=== PATIENT | male | born 1985 | race African-American/Black ===

== ENCOUNTER 2023-10-11 17:00 | Emergency (ER) | payer OTHER ==
[2023-10-11] MEDS ORDERED: LORazepam 2 MG/ML VIAL ONE (17:28)
[2023-10-11] MEDS ORDERED: NA CHLORIDE 0.9% 1,000 ML ONE ×3 (17:28→20:07)
[2023-10-11 17:50] LABS: Absolute Lymphocytes (CBC) 0.7 K/uL (0.7-4.9); Absolute Monocytes 0.5 K/uL (0.1-1.3); Absolute Neutrophil 5.2 K/uL (1.8-8.0); Basophils % 0.3 % (0-1.3); Eosinophils % 0.1 % (0-4.4); Hematocrit 41.1 % (39.6-49.0); Lymphocytes % 10.8 % (15.3-44.8); MCH 32.5 pg (27.0-35.0); MCHC 34.1 g/dL (32.0-36.0); MCV 95.3 fL (80-100); MPV 7.3 fL (7.6-11.3); Monocytes % 7.4 % (3.3-12.3); Neutrophils % 81.4 % (41.7-73.7); Platelets 212 thou/uL (152-406); RBC Red Blood Cell Count 4.32 M/uL (4.33-5.43)
[2023-10-11 17:56] LABS: PT Prothrombin Time 11.6 SECONDS (9.4-12.5); PTT, Activated Partial Thromb 18.4 SECONDS (24.3-36.9); Protime INR 1.04
[2023-10-11 18:08] LABS: ALT/SGPT 28 U/L (16-61); AST/SGOT 26 U/L (15-37); Albumin 3.8 g/dL (3.4-5.0); Albumin/Globulin Ratio 1.1 (1.1-1.8); Alkaline Phosphatase 62 U/L (45-117); BUN Blood Urea Nitrogen 25 mg/dL (7-18); Bicarbonate 27 mEq/L (21-32); Bilirubin Total 0.4 mg/dL (0.2-1.0); Globulin 3.6 g/dL (2.3-3.5); Glomerular Filtration Rate 78 ml/min (=/>90); Glucose Level 88 mg/dL (74-106); Protein, Total 7.4 g/dL (6.4-8.2); Sodium Level 141 mEq/L (136-145)
[2023-10-11 18:09] LABS: Bilirubin Direct < 0.2 mg/dL (0-0.2); Bilirubin Indirect, Calculated 0.2 mg/dL (0.2-0.8)
--- NOTE | 2023-10-11 18:49 | RAD REPORT ---
EXAM DESCRIPTION: CT - Head Brain Wo Cont - 10/11/2023 6:12 pm CLINICAL HISTORY: ams Headache, drowsiness COMPARISON: <Comparisons> TECHNIQUE: All CT scans are performed using dose optimization technique as appropriate and may inclu de automated exposure control or mA/KV adjustment according to patient size. FINDINGS: No intracranial hemorrhage, hydrocephalus or extra-axial fluid collection.No areas of brai n edema or evidence of midline shift. The paranasal sinuses and mastoids are clear. The calvarium is intact. IMPRESSION: No acute intracranial abnormality.
[2023-10-11 22:27] LABS: Anion Gap 9.2 mEq/L (5.0-15.0); Potassium 4.2 mEq/L (3.5-5.1)
--- NOTE | 2023-10-11 22:54 | ER ---
Nurse's Notes [facility] Name: Patrick Frederick Age: 37 yrs Sex: Male : 1985 Arrival Date: 10/11/2023 Time: 17:00 Bed 19 Private MD: Diagnosis: Adverse effect of unspecified psychotropic drug;Rhabdomyolysis Presentation: 10/10 17:02 Chief complaint: EMS states: DRUG ABUSE IN TDC, EXCITED DELIRIUM. Coronavirus screen: bp At this time, the client does not indicate any symptoms associated with coronavirus-19. Ebola Screen: No symptoms or risks identified at this time. Initial Sepsis Screen: Does the patient meet any 2 criteria? Altered Mental Status. No. Patient's initial sepsis screen is negative. Does the patient have a suspected source of infection? No. Patient's initial sepsis screen is negative. Risk Assessment: Do you want to hurt yourself or someone else? Patient reports no desire to harm self or others. Onset of symptoms is unknown. Care prior to arrival: Medication(s) given: 250 MG KETAMINE IM IV initiated. 18 GA, in the right forearm. 17:02 Method Of Arrival: EMS: [facility] bp 17:02 Acuity: SOM 2 bp Triage Assessment: 17:04 General: Appears ALTERED/AGGRESSIVE. Behavior is agitated, combative. Pain: Unable to bp use pain scale. Does not appear to understand pain scale. EENT: No deficits noted. Neuro: Level of Consciousness is confused. Historical: - Allergies: 17:04 No Known Allergies; bp - Home Meds: 17:04 amlodipine 10 mg tablet [Active]; sertraline 50 mg oral tablet [Active]; bp - PMHx: 17:04 Hypertensive disorder; Depressive disorder; bp - Immunization history:: Adult Immunizations unknown. - Infectious Disease History:: Denies. - Social history:: Smoking status: unknown. - Family history:: not pertinent. Screenin:07 [facility] ED Fall Risk Assessment (Adult) History of falling in the last 3 months, bp including since admission No falls in past 3 months (0 pts) Confusion or Disorientation Yes (5 pts) Intoxicated or Sedated Yes (3 pts) Impaired Gait Yes (1 pt) Mobility Assist Device Used No (0 pt) Altered Elimination No (0 pt) Score/Fall Risk Level 3 or more points = High Risk Maintained a safe environment. Abuse screen: Denies threats or abuse. Denies injuries from another. Nutritional screening: No deficits noted. Tuberculosis screening: No symptoms or risk factors identified. Assessment: 17:07 General: PT IN CUSTODY TDC. bp 19:30 General: Appears in no apparent distress. comfortable, Behavior is calm, uncooperative, mt4 Reports. Pain: Denies pain. Neuro: Level of Consciousness is awake, alert, obeys commands, Oriented to person, place, time, situation, Appropriate for age Ball Points Inspector are equal bilaterally Moves all extremities. Gait is patient in cuff . Speech is normal, Facial symmetry appears normal. Cardiovascular: Capillary refill < 3 seconds Patient's skin is warm and dry. Respiratory: Airway is patent. GI: Abdomen is flat, non-distended, Abd is soft and non tender. : Denies burning with urination. EENT:. 21:00 Reassessment: Patient observed to baseline, alert and orientated x4, provider states no mt4 need to collect urine anymore, as patient was given many opportunities to provide urine but continues to refuse. . 22:00 Reassessment: Patient and/or family updated on plan of care and expected duration. Pain mt4 level reassessed. General: Appears in no apparent distress. Behavior is calm, cooperative, Smells of. 23:45 Reassessment: Patient is alert, oriented x 3, equal unlabored respirations, skin mt4 warm/dry/pink. General: Appears in no apparent distress. comfortable, Behavior is calm, cooperative. Pain: Denies pain. Neuro: Level of Consciousness is awake, alert, obeys commands, Oriented to person, place, time, situation, Appropriate for age Gait is steady, Speech is normal, Facial symmetry appears normal. Cardiovascular: Capillary refill < 3 seconds. Respiratory: Musculoskeletal: Capillary refill < 3 seconds, Range of motion: intact in all extremities. Overdose: 18:21 [place] Suicide Severity Screening: "In the past month, have you wished you were bp or wished you could go to sleep and not wake up?" UNABLE TO ASSESS "In the past month, have you actually had any thoughts of killing yourself?" UNABLE TO ASSESS "In your lifetime, have you ever done anything, started to do anything, or prepared to do anything to end your life?" UNABLE TO ASSESS. 23:49 [place] Suicide Severity Screening: "In the past month, have you wished you were mt4 or wished you could go to sleep and not wake up?" Patient responds "no." Patient responds "yes." Based off client's responses, additional C-SSRS screening questions required. "In the past month, have you actually had any thoughts of killing yourself?" Patient responds "no." "In your lifetime, have you ever done anything, started to do anything, or prepared to do anything to end your life?" Patient responds "no.". 23:50 [place] Suicide Severity Screening: "In the past month, have you actually had any mt4 thoughts of killing yourself?" Patient responds "yes." Based off client's responses, additional C-SSRS screening questions required. Patient took unknown, patient refuses to tell. Vital Signs: 17:02 BP 130 / 80; Pulse 110; Resp 20; Temp 98; Pulse Ox 95% ; bp 19:42 BP 132 / 77; Pulse 87; Resp 16; Temp 99.5(O); Pulse Ox 97% on R/A; Pain 0/10; mt4 21:00 BP 132 / 88; Pulse 86; Resp 16; Pulse Ox 98% on R/A; Pain 0/10; mt4 23:42 BP 139 / 88; Pulse 78; Resp 18; Temp 99(O); Pulse Ox 97% on R/A; Pain 0/10; mt4 19:42 Pain Scale: Adult mt4 21:00 Pain Scale: Adult mt4 23:42 Pain Scale: Adult mt4 [place] Score: 19:30 Eye Response: spontaneous(4). Motor Response: obeys commands(6). Verbal Response: mt4 oriented(5). Total: 15. 22:00 Eye Response: spontaneous(4). Motor Response: obeys commands(6). Verbal Response: mt4 oriented(5). Total: 15. 23:45 Eye Response: spontaneous(4). Motor Response: obeys commands(6). Verbal Response: mt4 oriented(5). Total: 15. ED Course: 17:00 Patient arrived in ED. bp 17:01 Kali Loo MD is Attending Physician. rt 17:02 Ernesto Ernst, AYALA is Primary Nurse. bp 17:04 Triage completed. bp 17:04 Arm band placed on. bp 17:07 Patient has correct armband on for positive identification. bp 17:07 Maintain EMS IV. Dressing intact. Good blood return noted. Site clean \\T\\ dry. Gauge \\T\\ bp site: 18 GA RFA. Flushed with 10 mL NS. 17:42 Initial lab(s) drawn, by me, sent to lab. bp 17:58 Attending Physician role handed off by Kali Loo MD ec2 17:58 Akin Pollock MD is Attending Physician. ec2 18:13 CT Head Brain wo Cont In Process Unspecified. EDMS 19:30 No apparent distress. Resting quietly. mt4 19:30 Bed in low position. Call light in reach. Side rails up X 1. has police mt4 officers/security watching patient. Client placed on continuous cardiac and pulse oximetry monitoring. NIBP monitoring applied. Pulse ox on. Sitter at bedside. Lights dimmed. Patient is placed in psych hold. 19:30 No provider procedures requiring assistance completed. IV is intact, with fluids mt4 infusing freely. Patient maintains SpO2 saturation greater than 95% on room air. Patient maintains SpO2 saturation greater than 95% on room air. 19:59 Sarah Reyna FNP-C is PHCP. kb 22:00 No apparent distress. Resting quietly. Awaiting lab results. mt4 23:45 No apparent distress. mt4 23:45 Fall risk band placed. Placed in gown. Bed in low position. Side rails up X 1. Security mt4 at bedside. Lights dimmed. Patient is placed in psych hold. 23:45 IV discontinued, intact, bleeding controlled, No redness/swelling at site. Pressure mt4 dressing applied. Patient maintains SpO2 saturation greater than 95% on room air. 23:50 Provided Education on: quit taking substances . mt4 Administered Medications: 17:42 Drug: NS 0.9% IV 1000 ml IV at 1 bolus Per protocol; 1000 mL bolus Route: IV; Rate: 1 bp bolus; Site: right forearm; 19:00 Follow up: Response: No adverse reaction; IV Status: Completed infusion; IV Intake: mt4 1000ml 17:42 Drug: Ativan IVP 2 mg IVP once Route: IVP; Site: right forearm; bp 18:20 Follow up: Response: No adverse reaction bp 19:42 Drug: NS 0.9% IV 1000 ml IV at 1 bolus Per protocol; 1000 mL bolus Route: IV; Rate: 1 mt4 bolus; Site: right forearm; 20:39 Follow up: IV Status: Completed infusion; IV Intake: 1000ml mt4 20:39 Follow up: Response: No adverse reaction mt4 20:30 Drug: NS 0.9% IV 1000 ml IV at 1 bolus Per protocol; 1000 mL bolus Route: IV; Rate: 1 mt4 bolus; Site: right forearm; 21:53 Follow up: Response: No adverse reaction; IV Status: Completed infusion mt4 Medication: 17:07 VIS not applicable for this client. bp 19:30 VIS not applicable for this client. mt4 Intake: 19:00 IV: 1000ml; Total: 1000ml. mt4 20:39 IV: 1000ml; Total: 2000ml. mt4 Output: 22:00 Urine: 600ml (Voided); Total: 600ml. mt4 Outcome: 22:53 Discharge ordered by . kb 23:45 Discharged to [place] [employer], escorted by shelter officers mt4 23:45 Condition: stable 23:45 Discharge instructions given to patient, Instructed on discharge instructions, follow up and referral plans. medication usage, Demonstrated understanding of instructions, follow-up care, medications, Prescriptions given X 23:52 Patient left the ED. mt4 Signatures: Dispatcher [employer] Sarah Vang, ROUTE AGENT-C ROUTE AGENT-Ernesto Bellamy, RN RN bp Kali Loo MD MD rt Akin Pollock MD MD 2 Dianna Diaz RN RN mt4
--- NOTE | 2023-10-11 22:54 | EDPHYS ---
Physician Documentation [facility] Name: Patrick Frederick Age: 37 yrs Sex: Male : 1985 Arrival Date: 10/11/2023 Time: 17:00 Bed 19 Private MD: ED Physician Akin Pollock HPI: 10/10 17:29 This 37 yrs old Black Male presents to ER via EMS with complaints of Drug Abuse. rt 17:31 Patient presents to the ED with altered mental status. He was imprisoned, they believe rt that he may have smoked something but unclear what he may have smoked. Patient was agitated, combative. Received about 300 mg of ketamine prior to arrival. Patient is uncooperative, not speaking unable to get further history from the patient.. Historical: - Allergies: 17:04 No Known Allergies; bp - Home Meds: 17:04 amlodipine 10 mg tablet [Active]; sertraline 50 mg oral tablet [Active]; bp - PMHx: 17:04 Hypertensive disorder; Depressive disorder; bp - Immunization history:: Adult Immunizations unknown. - Infectious Disease History:: Denies. - Social history:: Smoking status: unknown. - Family history:: not pertinent. ROS: 17:31 Unable to obtain ROS due to altered mental status, rt Exam: 17:31 Head/Face: Normocephalic, atraumatic. Chest/axilla: Normal chest wall appearance and rt motion. Nontender with no deformity. No lesions are appreciated. Cardiovascular: Regular rate and rhythm with a normal S1 and S2. No gallops, murmurs, or rubs. Normal PMI, no JVD. No pulse deficits. Respiratory: Lungs have equal breath sounds bilaterally, clear to auscultation and percussion. No rales, rhonchi or wheezes noted. No increased work of breathing, no retractions or nasal flaring. Abdomen/GI: Soft, non-tender, with normal bowel sounds. No distension or tympany. No guarding or rebound. No evidence of tenderness throughout. 17:31 Constitutional: The patient appears Agitated, uncooperative 17:31 Neuro: Pupils dilated, moves all 4 extremities equally, 18:10 ECG was reviewed by the Attending Physician. rt Vital Signs: 17:02 BP 130 / 80; Pulse 110; Resp 20; Temp 98; Pulse Ox 95% ; bp 19:42 BP 132 / 77; Pulse 87; Resp 16; Temp 99.5(O); Pulse Ox 97% on R/A; Pain 0/10; mt4 21:00 BP 132 / 88; Pulse 86; Resp 16; Pulse Ox 98% on R/A; Pain 0/10; mt4 23:42 BP 139 / 88; Pulse 78; Resp 18; Temp 99(O); Pulse Ox 97% on R/A; Pain 0/10; mt4 19:42 Pain Scale: Adult mt4 21:00 Pain Scale: Adult mt4 23:42 Pain Scale: Adult mt4 [facility] Coma Score: 19:30 Eye Response: spontaneous(4). Motor Response: obeys commands(6). Verbal Response: mt4 oriented(5). Total: 15. 22:00 Eye Response: spontaneous(4). Motor Response: obeys commands(6). Verbal Response: mt4 oriented(5). Total: 15. 23:45 Eye Response: spontaneous(4). Motor Response: obeys commands(6). Verbal Response: mt4 oriented(5). Total: 15. MDM: 17:16 Patient medically screened. rt 18:08 ED course: Patient signed out to me by previous physician, in brief patient arrives ec2 today due to concern for suspected ingestion, patient was initially fairly agitated, received intramuscular ketamine. Plan is follow-up lab work, CT imaging and have patient metabolize ketamine.. 19:21 Data reviewed: vital signs. ED course: Tylenol level undetectable. Metabolic profile ec2 reassuring. CBC reassuring. LFTs nonactionable, coagulation profile unremarkable, CPK slightly elevated at 738. Alcohol level undetectable. CT scan of head shows no acute intracranial process.. 22:50 Counseling: I had a detailed discussion with the patient and/or guardian regarding the kb historical points, exam findings, and any diagnostic results supporting the discharge/admit diagnosis, lab results, the need for outpatient follow up, a family practitioner. ED course: Pt tolerating po intake and urinating. BUN, creatinine and GFR improved on repeat BMP. CK slightly higher than previous. Pt is awake, alert and oriented. Discussed case with Dr Rodriguez who recommends discharge with outpatient follow up. . 22:53 Consideration of Admission/Observation Escalation of care including kb admission/observation considered. admission considered for rhabdomyolysis, but discussed with Dr Rodriguez who recommends outpatient follow up. Pt is eating, drinking and urinating well. Historians other than the Patient: EMS: [facility]. 10/10 17:18 Order name: Acetaminophen; Complete Time: 19:21 rt 10/10 17:18 Order name: Basic Metabolic Panel; Complete Time: 19:21 rt 10/10 17:18 Order name: CBC with Diff; Complete Time: :21 rt 10/10 17:18 Order name: ETOH Level; Complete Time: :21 rt 10/10 17:18 Order name: Hepatic Function; Complete Time: :21 rt 10/10 17:18 Order name: PT-INR; Complete Time: :21 rt 10/10 17:18 Order name: Ptt, Activated; Complete Time: :21 rt 10/10 17:18 Order name: Salicylate; Complete Time: 19:21 rt 10/10 17:29 Order name: CPK; Complete Time: 19:21 rt 10/10 19:21 Order name: CPK; Complete Time: 19:59 ec2 10/10 20:04 Order name: BMP; Complete Time: 22:45 ec2 10/10 20:04 Order name: CK; Complete Time: 22:45 ec2 10/10 17:18 Order name: CT Head Brain wo Cont; Complete Time: 19:21 rt 10/10 17:18 Order name: EKG; Complete Time: 17:18 rt 10/10 17:18 Order name: EKG - Nurse/Tech; Complete Time: 18:20 rt 10/10 17:18 Order name: IV Saline Lock; Complete Time: 18:20 rt 10/10 17:18 Order name: Labs collected and sent; Complete Time: 18:20 rt 10/10 17:18 Order name: Suicide Screening ([place]); Complete Time: 17:25 rt 10/10 19:21 Order name: Vital Signs; Complete Time: 21:44 ec2 EC:10 Rate is 97 beats/min. Rhythm is regular, Normal Sinus Rhythm with No ectopy. QRS Imbler rt is Normal. NC interval is normal. QRS interval is normal. QT interval is normal. No Q waves. T waves are Normal. No ST changes noted. Administered Medications: 17:42 Drug: NS 0.9% IV 1000 ml IV at 1 bolus Per protocol; 1000 mL bolus Route: IV; Rate: 1 bp bolus; Site: right forearm; 19:00 Follow up: Response: No adverse reaction; IV Status: Completed infusion; IV Intake: mt4 1000ml 17:42 Drug: Ativan IVP 2 mg IVP once Route: IVP; Site: right forearm; bp 18:20 Follow up: Response: No adverse reaction bp 19:42 Drug: NS 0.9% IV 1000 ml IV at 1 bolus Per protocol; 1000 mL bolus Route: IV; Rate: 1 mt4 bolus; Site: right forearm; 20:39 Follow up: IV Status: Completed infusion; IV Intake: 1000ml mt4 20:39 Follow up: Response: No adverse reaction mt4 20:30 Drug: NS 0.9% IV 1000 ml IV at 1 bolus Per protocol; 1000 mL bolus Route: IV; Rate: 1 mt4 bolus; Site: right forearm; 21:53 Follow up: Response: No adverse reaction; IV Status: Completed infusion mt4 Disposition: 22:55 Chart complete. kb 10/11 07:27 Co-signature as Attending Physician, Kali Loo MD I reviewed the patient's care rt provided by Advanced Practice Provider \T\ agree w/ the diagnosis \T\ care plan. I personally saw the pt \T\ performed a substantive portion of the visit, incldng all aspects of the (History/Exam/Medical Decision Making). Disposition Summary: 10/11/23 22:53 Discharge Ordered Notes: Location: Law Enforcement kb Condition: Stable kb Diagnosis - Adverse effect of unspecified psychotropic drug kb - Rhabdomyolysis kb Followup: kb - With: Emergency Department - When: As needed - Reason: Worsening of condition Followup: kb - With: Private Physician - When: 2 - 3 days - Reason: Recheck today's complaints, Continuance of care, Re-evaluation by your physician Discharge Instructions: - Discharge Summary Sheet kb - Rhabdomyolysis kb - Illegal Drug Use Information, Adult kb Forms: - Medication Reconciliation Form kb - Antibiotic Education kb - Prescription Opioid Use kb - Patient Portal Instructions kb - Leadership Thank You Letter kb Signatures: Dispatcher [employer] Sarah Vang FNP-C FNP-Ernesto Bellamy RN RN Kali Miller MD MD rt Akin Pollock MD MD 2 Tath, Molinec, RN RN mt4
[2023-10-12 00:23] VITALS: BP 139/88; TEMP 99; O2SAT 97
== END 2023-10-11 23:52 ==
LOC: ER 17:00
DX: M62.82 Rhabdomyolysis (principal); T43.8X5A Adverse effect of other psychotropic drugs, initial encounter; F32.A Depression, unspecified; I10 Essential (primary) hypertension
CPT/HCPCS: 36415; 70450; 80048; 80076; 80143; 80179; 82077; 82550; 85025; 85610; 85730; J7030

== ENCOUNTER 2023-12-21 16:31 | Emergency (ER) | payer OTHER ==
[2023-12-21] MEDS ORDERED: NA CHLORIDE 0.9% 1,000 ML ONE (16:46)
--- NOTE | 2023-12-21 17:22 | RAD REPORT ---
Procedure: Chest Single View HISTORY: Device placement endotracheal tube placement FINDINGS: An endotracheal tube has its tip just above the level of the aortic arch..
[2023-12-21 17:27] LABS: Absolute Basophils 0.1 K/uL (0-0.5); Absolute Lymphocytes (CBC) 0.9 K/uL (0.7-4.9); Absolute Monocytes 0.5 K/uL (0.1-1.3); Absolute Neutrophil 5.8 K/uL (1.8-8.0); Basophils % 0.9 % (0-1.3); Eosinophils % 0.2 % (0-4.4); Hematocrit 39.2 % (39.6-49.0); Hemoglobin 13.8 g/dL (13.6-17.9); Lymphocytes % 12.6 % (15.3-44.8); MCH 32.7 pg (27.0-35.0); MCHC 35.1 g/dL (32.0-36.0); MCV 93.2 fL (80-100); MPV 7.6 fL (7.6-11.3); Monocytes % 6.6 % (3.3-12.3); Neutrophils % 79.7 % (41.7-73.7); Platelets 214 thou/uL (152-406); RBC Red Blood Cell Count 4.21 M/uL (4.33-5.43); Red Cell Distribution Width 11.8 % (12.1-15.2)
[2023-12-21 17:28] LABS: PT Prothrombin Time 12.3 SECONDS (9.4-12.5); PTT, Activated Partial Thromb 22.3 SECONDS (24.3-36.9); Protime INR 1.1
[2023-12-21 17:38] LABS: ALT/SGPT 17 U/L (16-61); AST/SGOT 18 U/L (15-37); Albumin 3.7 g/dL (3.4-5.0); Albumin/Globulin Ratio 1.2 (1.1-1.8); Alkaline Phosphatase 63 U/L (45-117); Anion Gap 8.7 mEq/L (5.0-15.0); BUN Blood Urea Nitrogen 21 mg/dL (7-18); Bicarbonate 24 mEq/L (21-32); Bilirubin Total 0.5 mg/dL (0.2-1.0); Globulin 3.2 g/dL (2.3-3.5); Glomerular Filtration Rate 74 ml/min (=/>90); Glucose Level 154 mg/dL (74-106); Potassium 3.7 mEq/L (3.5-5.1); Protein, Total 6.9 g/dL (6.4-8.2); Sodium Level 135 mEq/L (136-145)
[2023-12-21 17:43] LABS: Bilirubin Direct < 0.2 mg/dL (0-0.2); Bilirubin Indirect, Calculated 0.3 mg/dL (0.2-0.8)
[2023-12-21] MEDS ORDERED: CEFAZOLIN SODIUM 1 GM/VIAL ONE (17:43)
[2023-12-21] MEDS ORDERED: LEVETIRACETAM 500 MG/5 ML VIAL IV ONE ×3 (17:43→20:45)
[2023-12-21] MEDS ORDERED: NA CHLORIDE 0.9% 200 ML ONE (17:44)
[2023-12-21] MEDS ORDERED: TDAP (DIPHTH,PERTUSS(ACELL),TET VAC) 0.5 ML VIAL IMVAC ONE (17:44)
[2023-12-21] MEDS ORDERED: MIDAZOLAM HCL IN 0.9 % NACL/PF 100 MG/100 ML BAG IVPB ONE ×2 (18:03→22:57)
--- NOTE | 2023-12-21 18:04 | RAD REPORT ---
EXAMINATION: CT HEAD WITHOUT CONTRAST CT CERVICAL SPINE WITHOUT CONTRAST CLINICAL INDICATION: Head and neck injury status post fall. Head and neck pain TECHNIQUE: Axial CT images from the skull base to the vertex without intravenous contrast. Axial CT i mages through the cervical spine were obtained without intravenous contrast. Sagittal and coronal reformatted images were created from the data set. Coronal and sagittal reformatted images were creat ed from the data set. One or more of the following dose reduction techniques were used: Automated exposure control, adjustment of the mA and/or kV according to patient size, and/or iterative reconstr uction. Unless otherwise specified, incidental findings do not require dedicated imaging follow-up. [id number]. Comparison: September 2023 FINDINGS: Intracranial bleed not noted. Ventricles are small and unchanged in size since the prior examination. No significant hypodensity within the brain No extra-axial fluid collection. No fluid within the sinuses/mastoids No fracture or dislocation is seen involving the cervical spine. IMPRESSION: No acute intracranial abnormality noted A cervical fracture is not seen. If the patient continues to have symptoms to suggest acute FILM BOOKER/spinal pathology then MRI would be rec ommended
--- NOTE | 2023-12-21 18:09 | RAD REPORT ---
EXAM: Chest Abdomen Pelvis W Cont CLINICAL INDICATION: Chest and abdominal pain TECHNIQUE: CT chest, abdomen and pelvis was performed, with 100 cc Isovue-300 IV contrast, as per de partment protocol. Axial, sagittal and coronal reconstructions were obtained. One or more of the following dose reduction techniques were used: Automated exposure control, adjustment of the mA and/o r kV according to the patient size, and/or iterative reconstruction. Unless otherwise specified, incidental findings do not require dedicated imaging follow-up. [id number]. Oral contrast not given. This limits evaluation of the bowel. COMPARISON: None FINDINGS: A pulmonary contusion not seen. No mediastinal hematoma noted No pleural effusion.. No pericardial effusion An endotracheal tube has its tip in the very proximal right mainstem bronchus. Liver, spleen, pancreas, adrenals, kidneys and bladder do not demonstrate an acute traumatic injury. There is no evidence of diverticulitis 4.1 cm nodule left lobe thyroid gland IMPRESSION: No acute traumatic injury involving chest, abdomen or pelvis seen An endotracheal tube has its tip in the very proximal right mainstem bronchus. 4.1 cm nodule left lobe thyroid gland. Nonemergent thyroid ultrasound recommended
--- NOTE | 2023-12-21 18:20 | ER ---
Nurse's Notes [facility] Name: Carlos Enrique Frederick Age: 38 yrs Sex: Male : 1985 Arrival Date: 12/21/2023 Time: 16:31 Bed 3 Private MD: Diagnosis: Epilepsy, unspecified, intractable, with status epilepticus Presentation: 12/20 16:36 Chief complaint: EMS states: HEAD TRAUMA AFTER SUSPECTED SZ. Mechanism of Injury: Fall bp from standing position. Trauma event details: Injury occurred in the [facility], Injury occurred: [facility] Injury occurred: December 21, 2023 Injury occurred at: 16:00. 16:36 Acuity: SOM 2 bp 16:36 Method Of Arrival: EMS: [facility] bp 16:36 Care prior to arrival: Assisted ventilation, Oral intubation, Medication(s) given: bp ROCURONIUM, KETAMINE IV initiated. 18 GA, in the left in the right antecubital area. 21:31 Coronavirus screen: At this time, the client does not indicate any symptoms associated ha1 with coronavirus-19. Ebola Screen: No symptoms or risks identified at this time. Complicating Factors: There are no complicating factors for this patient. Initial Sepsis Screen: Does the patient meet any 2 criteria? No. Patient's initial sepsis screen is negative. Does the patient have a suspected source of infection? No. Patient's initial sepsis screen is negative. Risk Assessment: Do you want to hurt yourself or someone else? Unable to obtain. Onset of symptoms was December 21, 2023. Triage Assessment: 16:36 General: Appears ill, Behavior is unresponsive. Pain: Unable to use pain scale. Patient tm6 is unresponsive. EENT: Throat intubated on arrival. Neuro: Level of Consciousness is unresponsive, Oriented to none Pupils are fixed, non-reactive. Cardiovascular: Patient's skin is warm and dry. Respiratory: Airway via oral intubation. GI: Abdomen is flat, non-distended. : No deficits noted. Derm: Wound noted forehead Wound is laceration to forehead. Musculoskeletal: No signs and/or symptoms reported regarding the musculoskeletal system. Injury Description: Laceration sustained to forehead is 2.6 to 7.5 cm long, bleeding moderately, is bleeding moderately. Trauma Activation: Not Applicable Physician: ED Physician; Name: ; Notified At: ; Arrived At: Physician: General Surgeon; Name: ; Notified At: ; Arrived At: Physician: Radiology; Name: ; Notified At: ; Arrived At: Physician: Respiratory; Name: ; Notified At: ; Arrived At: Physician: Lab; Name: ; Notified At: ; Arrived At: Historical: - Allergies: 17:31 No Known Allergies; tm6 - PMHx: 17:31 Hypertensive disorder; depressive disorder; tm6 - PSHx: 17:31 None; tm6 - Immunization history: Last tetanus immunization: unknown. - Infectious Disease History:: Denies. - Social history:: Smoking status: unknown. Screenin:36 Abuse screen: DAX. Tuberculosis screening: No symptoms or risk factors identified. bp 19:00 [facility] ED Fall Risk Assessment (Adult) History of falling in the last 3 months, ha1 including since admission Yes- single mechanical fall (1 pt) Confusion or Disorientation Yes (5 pts) Intoxicated or Sedated No (0 pts) Impaired Gait No (0 pts) Mobility Assist Device Used No (0 pt) Altered Elimination Score/Fall Risk Level 0 - 2 = Low Risk Oriented to surroundings, Educated pt \\T\\ family on fall prevention, incl call for assistance when getting out of bed, Hourly rounding (assess needs \\T\\ fall precautionary measures) done. 19:00 Nutritional screening: No deficits noted. ha1 Primary Survey: 16:36 NO uncontrolled hemorrhage observed. A: Patient intubated prior to arrival by EMS, via bp oral route, with 7.0 endotracheal tube. Placement verified by chest x-ray, endotracheal tube secured 21 centimeters at teeth. Breathing/Chest: Respiratory effort: poor, Breath sounds: clear, bilaterally. Respiratory pattern: regular. Circulation: Hemorrhage: No external hemorrhage noted. Skin temperature: warm. Disability The client is unresponsive. Exposure/Environment: All clothing and personal items were removed. Forensic evidence collection is not deemed to be indicated at this time. Items placed in patient belonging bag. There is evidence of uncontrolled external hemorrhage. Provider notified immediately. Methods to control bleeding applied. Obvious injury(ies) are noted at this time: EXPOSED SKULL UNDER HEAD LAC A warming method has been applied: A warm blanket has been provided to the patient. 17:15 Reassessment Alertness and Airway: Intubated HAT CUTTER By EMS Breathing: Respiratory effort bp No effort Circulation: No external hemorrhage noted. Regular and strong central pulse, skin warm/dry/normal color. Disability: Unconscious. Assessment: 16:36 General: Appears distressed, Behavior is unresponsive. Pain: Unable to use pain scale. bp Patient is intubated. 16:55 Reassessment: Pt to CT via stretcher, on monitor, O2 via ET tube/Portable Ventilator, aa5 accompanied by me, wafer fab technician, and RT. . 17:30 Reassessment: Pt back from CT scan, accompanied by me, wafer fab technician, and RT. . aa5 18:16 Neuro: Akers Agitation-Sedation Scale (RASS): +1 Restless. tm6 19:16 Neuro: Akers Agitation-Sedation Scale (RASS): +1 Restless. tm6 19:37 Reassessment: report called to Polo CAI at [facility]. tm6 20:08 Reassessment: soft wrist restraints removed, per [place] [employer] policy.tm6 20:13 Neuro: Akers Agitation-Sedation Scale (RASS): +2 Agitated. tm6 20:30 Respiratory: Airway via oral intubation Respiratory effort is unlabored, Respiratory ha1 pattern is regular, Ventilator assessment: ET Tube: 7.5 23 cm at the teeth Tidal Volume: 500 Respiratory Rate: 16 FiO2: PEEP: 5 Suction provided. Breath sounds are clear bilaterally. 21:00 General: Appears comfortable, Behavior is sedated . Cardiovascular: Rhythm is sinus ha1 rhythm. Respiratory: Airway via oral intubation Respiratory effort is even, Respiratory pattern is regular. 22:15 Reassessment: transfer delayed due to transferring ambulance having issues with ha1 ventilator. notified charge nurse AYALA Holley. 22:32 General: EMS transport at bedside unable to transfer PT to EMS vent. EMS unaware of 3 vent set up/complications. [facility] [place] [place] transportation dispatch notified of delay in transfer. Per Katia, she would contact EMS dispatch and call back. I notified [facility] [place] [place] of 4 hour total wait time for PT transport and the critical condition of PT. She stated, "im the only one here and i cant do anything about it". Waiting for call back/update at this time. . 22:50 General: RT at bedside transferring PT to EMS vent. PT stable and ready for transport . lg3 23:00 General: Received call back from Katia with [facility] [place] [place] transportation. She stated that she lg3 contacted EMS dispatch but that dispatch could not get in touch with EMS crew at bedside. Informed Katia that PT was currently on EMS vent and ready for transport. No other communications necessary at this time. . 23:00 Cardiovascular: Rhythm is sinus rhythm. Respiratory: Airway via oral intubation ha1 Respiratory effort is even, unlabored, Respiratory pattern is regular, symmetrical. Derm: Skin is normal. Vital Signs: 17:25 BP 103 / 63; Pulse 91; Resp 14; Pulse Ox 99% on ETT vent; MAP 76 mmHg; Weight 70 kg; bp 17:36 BP 159 / 108; Pulse 75; Resp 17; Pulse Ox 100% on R/A; MAP 124 mmHg; Weight 71.21 kg; tm6 18:16 BP 137 / 96; Pulse 88; Pulse Ox 100% on ETT vent; MAP 107 mmHg; tm6 19:03 BP 130 / 95; Pulse 83; Pulse Ox 100% on ETT vent; MAP 104 mmHg; tm6 19:10 BP 122 / 87; Pulse 92; Pulse Ox 100% on ETT vent; MAP 98 mmHg; tm6 19:30 BP 132 / 99; Pulse 88; Resp 15 A; Pulse Ox 100% on ETT vent; ha1 19:48 Temp 99(Ca); tm6 20:00 BP 139 / 92; Pulse 88; Resp 15 A; Pulse Ox 100% on ETT vent; ha1 20:20 BP 129 / 88; Pulse 87; Resp 16 A; Pulse Ox 100% on R/A; ha1 20:45 BP 128 / 84; Pulse 89; Resp 16 A; Pulse Ox 100% on ETT vent; ha1 21:00 BP 109 / 78; Pulse 88; Resp 16 A; Pulse Ox 100% on ETT vent; ha1 21:15 BP 113 / 74; Pulse 88; Resp 17 A; Pulse Ox 100% on ETT vent; ha1 21:30 BP 119 / 74; Pulse 88; Resp 15 A; Pulse Ox 100% on ETT vent; ha1 21:45 BP 112 / 75; Pulse 88; Resp 15 A; Pulse Ox 100% on ETT vent; ha1 22:00 BP 113 / 79; Pulse 88; Resp 15 A; Pulse Ox 100% on ETT vent; ha1 22:20 BP 135 / 86; Pulse 86; Resp 15 A; Pulse Ox 100% on ETT vent; ha1 22:37 BP 111 / 91; Pulse 93; Resp 16 A; Pulse Ox 100% ; ha1 23:00 BP 125 / 82; Pulse 86; Resp 16 A; Pulse Ox 100% on ETT vent; ha1 23:10 BP 143 / 91; Pulse 84; Resp 18 A; Pulse Ox 100% on ETT vent; ha1 Universal Coma Score: 16:36 Eye Response: none(1). Modifying Factors: Intubated. Motor Response: none(1). Verbal bp Response: none(1). Total: 3. Trauma Score (Adult): 16:36 Eye Response: none(0); Verbal Response: none(0); Motor Response: none(0); Systolic BP: bp > 89 mm Hg(4); Respiratory Rate: None(0); Universal Score: 3; Trauma Score: 4 ED Course: 16:36 Patient arrived in ED. cm10 16:36 Patient has correct armband on for positive identification. bp 16:36 Arm band placed on left wrist. tm6 16:36 O2 via INTUBATED. bp 16:36 Maintain EMS IV. Dressing intact. Good blood return noted. Site clean \\T\\ dry. Gauge \\T\\ bp site: 18 GA LEFT AC, 18 GA R AC. Flushed with 10 mL NS. 16:38 Akin Pollock MD is Attending Physician. sb4 16:42 Ernesto Ernst, RN is Primary Nurse. bp 16:59 CXR XRAY In Process Unspecified. EDMS 17:24 Triage completed. bp 17:32 Provided Education on: N/A. bp 17:42 Notified ED physician of a critical lab result(s). Lactic 3.1. cm10 17:53 Chest Abdomen Pelvis W Cont In Process Unspecified. EDMS 17:53 Head C Spine Mpr Wo Con In Process Unspecified. EDMS 18:20 Transfer initiated with [facility] time. Spoke with Shauna. cm10 18:[address] Bradford to [facility]. Transportation to be set-up through [address] [facility]. 19:03 EKG done, by ED staff, reviewed by Akin Pollock MD. tm6 19:07 Valero cath inserted, using sterile technique, 16 Fr., returned clear yellow urine. tm6 Patient tolerated well. 19:31 Spoke with Robina at [facility] [place] [place] transportation dispatch said the soonest available truck is rv1 [facility] with a 2 hour ETA. I asked if they had attempted to call our local [facility] who is on their list of available services and Robina said they had not but I was welcome to give them a call and call her back. I called and spoke with Julianna at EMS who said they will transfer the patient with a 20 min ETA. I called [facility] [place] [place] transportation back, was placed on hold then hung up on. Julianna with EMS called again and informed me that [facility] [place] [place] transportation reached out to her and told them that transportation was already established for the patient so they were not needed. I called [facility] [place] [place] transportation back and spoke with Robina who stated that they still had [facility] for transportation. I informed her that to avoid any further miscommunication that we will keep the 2 Hour ETA. Charge Nurse and Provider notified of delay in transfer. 20:30 Report received from AYALA Mclean. ha1 20:42 Inserted saline lock: 22 gauge in right wrist, using aseptic technique. Flushed with 10 ha1 mL NS. 21:31 Thermoregulation: warm blanket given to patient. ha1 22:34 Contacted [facility] [place] [place] transportation dispatch due to EMS service not being able to set up their rv1 vent. Dispatch will be calling for another crew. 23:15 No provider procedures requiring assistance completed. ha1 23:15 Patient transferred, IV remains in place. ha1 Restraints: 18:30 Non-Violent Restraint: Initial order obtained. December 21, 2023 at 18:30 Staff present bp on initiation: PAVEL RN, SHARLA HINTON Indications on initiation: Actions/Behavior observed: repeated attempts to remove artificial airway/mechanical respiration support, repeated attempts to remove/tamper with lines/tubes/IV med devices \\T\\ wound dressing, Confused/disoriented, has impaired decision making, has decreased level of consciousness, unable to follow instructions, Less restrictive alternatives attempted: eliminated unnecessary lines/tubes, lines/tubes covered, decrease environmental stimuli, medicated for pain/anxiety, medications evaluated, Family notification/education Education Performed: Unable to provide education regarding restraints due to PT AOx0, NOT RESPONDING TO VERBAL DIRECTION Circulation: Warm/dry, capillary refill WNL Skin integrity: Intact, healthy with good turgor Signs of injury related to restraint: No injuries noted. Range of Motion declined. Level of distress \\T\\ agitation: confused, Elimination/Hygiene: with urinary catheter, Criteria to discontinue restraint not met. Restraint continued Observed behaviors: Attempting to tamper with airway/lines/wounds unable to follow instructions confused/disoriented Less restrictive alternatives attempted: Medicated for pain/anxiety eliminate unnecessary lines/tubes Alt interventions: Ineffective Clinical justification for continued use Airway protection patient safety Restraint status: Soft wrist restraint (Right) Continued. Soft wrist restraint (Left) Continued. Cognition: unable to follow commands. 20:09 Non-Violent Restraint: Assuming responsibility of patient is restraints. Circumstances tm6 for use: per [place] [employer] warden, patient cannot be restrained with soft wrist restraints to bed. Restraints removed. [place] [employer] now assuming restraint responsibilities Current patient physical, emotional \\T\\ behavioral status: agitated/restless, unable to follow commands. Restraint Discontinued on December 21, 2023 at 20:09. Administered Medications: 16:50 Drug: Propofol IV 5 mcg/kg/min IV at calculated rate See Administration Instructions; tm6 Standard concentration 1000 mg / 100 mL; Recommended max rate 50 mcg/kg/min; Titrate 5 mcg/kg/min every 5 minutes to achieve goal (see titration policy); Goal parameter RASS score 0 to -2 Route: IV; Rate: calculated rate; Site: right antecubital; 19:38 Follow up: Response: No adverse reaction tm6 20:35 Follow up: Response: No adverse reaction; RASS: Moderate sedation (-3); Rate change 60 ha1 mcg/min 22:16 Follow up: Response: No adverse reaction; RASS: Moderate sedation (-3); IV Status: ha1 Infusion continued upon transfer 23:10 Follow up: Response: No adverse reaction; Rate change 50 mcg/min; IV Status: Infusion ha1 continued upon transfer 16:50 Drug: Rocuronium IVP 70 mg IVP once Route: IVP; Site: left antecubital; bp 17:39 Follow up: Response: No adverse reaction bp 17:00 Drug: NS 0.9% IV 1000 ml IV at 1000 ml once; to be given as a bolus over 60 minutes tm6 Route: IV; Rate: 1000 ml; Site: left antecubital; 18:00 Follow up: Response: No adverse reaction; IV Status: Completed infusion; IV Intake: tm6 1000ml 17:55 Drug: ceFAZolin IVPB 1 grams IVPB once Route: IVPB; Site: left antecubital; tm6 19:00 Follow up: Response: No adverse reaction; IV Status: Completed infusion ha1 17:55 Not Given (Product Out of Stock): diph,pertus(acel),tetanus vac (pf)0.5 ml IM once; tm6 indicated for adults and teenagers 11 to 64 years of age 17:55 Drug: Boostrix Tdap IM 0.5 ml IM once; as a single dose Route: IM; Site: right deltoid; tm6 19:39 Follow up: Response: No adverse reaction tm6 17:56 Drug: Keppra IV 2000 mg IV at bolus once Route: IV; Rate: bolus; Site: left antecubital;tm6 19:00 Follow up: Response: No adverse reaction; IV Status: Completed infusion ha1 18:15 Drug: Midazolam IVP or IV 0.01 mg/kg/h IV at calculated rate See Administration tm6 Instructions; (Standard concentration: 100 mg / 100 mL NS); Recommended max rate 0.1 mg/kg/hr; Titrate 0.01 mg/kg/hr as often as every 30 minutes to achieve goal (see titration policy); Goal parameter RASS 0 to -2 Route: IV; Rate: calculated rate; Site: left antecubital; 19:01 Follow up: Rate change 0.1 calculated rate tm6 19:38 Follow up: Response: No adverse reaction tm6 22:16 Follow up: Response: No adverse reaction; RASS: Moderate sedation (-3); IV Status: ha1 Infusion continued upon transfer 18:40 Drug: Ketamine IVP 100 mg IVP once Route: IVP; Site: left antecubital; tm6 19:38 Follow up: Response: No adverse reaction tm6 19:08 Drug: Midazolam IVP or IV 10 mg IVP once Route: IVP; Site: right antecubital; bp 19:39 Follow up: Response: No adverse reaction tm6 19:11 Drug: Propofol IVP 100 mg IVP once; Document RASS score. Route: IVP; Site: right lg3 antecubital; 19:39 Follow up: Response: No adverse reaction tm6 19:16 Drug: Succinylcholine IVP 150 mg IVP once Route: IVP; Site: right antecubital; lg3 19:39 Follow up: Response: No adverse reaction tm6 20:13 Drug: Propofol IVP 100 mg IVP once; Document RASS score. Route: IVP; Site: left tm6 antecubital; 20:30 Follow up: Response: No adverse reaction; RASS: Moderate sedation (-3) ha1 20:13 Drug: Midazolam IVP or IV 10 mg IVP once Route: IVP; Site: left antecubital; tm6 20:30 Follow up: Response: No adverse reaction; RASS: Moderate sedation (-3) ha1 21:05 Drug: Keppra IV 2000 mg IV at bolus once Route: IV; Rate: bolus; Site: right wrist; ha1 21:35 Follow up: Response: No adverse reaction; IV Status: Completed infusion; IV Intake: ha1 100ml Medication: 19:39 Vaccine Information Statement (VIS) provided today. Questions and/or concerns tm6 addressed. VIS edition date: September 25, 2020. Intake: 16:36 PO: 0ml; Total: 0ml. bp 18:00 IV: 1000ml; Total: 1000ml. tm6 21:35 IV: 100ml; Total: 1100ml. ha1 Outcome: 18:19 ER care complete, transfer ordered by . ec2 23:15 Transferred by ground EMS to [facility], Transfer form ha1 completed. X-rays sent w/ patient. 23:15 Condition: stable 23:15 Patient left the ED. ha1 Signatures: Dispatcher [employer] EDMS Jeri Kinney RN RN aa5 Ernesto Ernst RN RN bp Able, Lacie, RN RN lg3 Amanda Will RN RN ha1 Yelitza Funes, PA-C PA-C Maria C Dean rv1 Krystina Feliciano, RN RN cm10 Akin Pollock MD MD ec2 Pavel Stoll RN RN tm6 Corrections: (The following items were deleted from the chart) 17:30 16:36 Chief complaint: tm6 bp 17:31 17:29 Care prior to arrival: Assisted ventilation, Oral intubation, Medication(s) bp given: ROCURONIUM, KETAMINE IV initiated. 18 GA, in the left in the right antecubital area, bp 17:31 17:25 BP 103 / 63; Pulse 91bpm; Resp 14bpm; Pulse Ox 99% ET / Ventilator; MAP 76 mmHg; bp tm6 17:37 16:36 A: Patient intubated prior to arrival by EMS, via oral route, with 7.5 bp endotracheal tube. Placement verified by chest x-ray, endotracheal tube secured 21 centimeters at teeth. bp 20:37 19:31 Spoke with Robina at [facility] [place] [place] transportation dispatch said the soonest available truck rv1 is [facility] with a 2 hour ETA. I asked if they had attempted to call our local [facility] who is on their list of available services and Robina said they had not but I was welcome to give them a call and call her back. I called and spoke with Julianna at EMS who said they will transfer the patient. I called [facility] [place] transportation back, was placed on hold then hung up on. Julianna with EMS called again and informed me that [facility] [place] [place] transportation reached out to her and told them that transportation was already established for the patient so they were not needed. I called [facility] [place] [place] transportation back and spoke with Robina who stated that they still had [facility] for transportation. I informed her that to avoid any further miscommunication that we will keep the 2 Hour ETA. Charge Nurse and Provider notified of delay in transfer. rv1 22:42 20:35 Response: No adverse reaction; RASS: Moderate sedation (-3); Rate change 60 ha1 mcg/kg/min ha1 23:29 23:25 Patient left the ED. ha1 ha1 12/21 02:37 10 23:00 Respiratory: Airway via oral intubation Respiratory effort is unlabored, ha1 Respiratory pattern is regular, Ventilator assessment: ET Tube: 7.5 23 cm at the teeth Tidal Volume: 500 Respiratory Rate: 16 FiO2: PEEP: 5 Suction provided. Breath sounds are clear bilaterally. ha1
--- NOTE | 2023-12-21 18:20 | EDPHYS ---
Physician Documentation [facility] Name: Carlos Enrique Frederick Age: 38 yrs Sex: Male : 1985 Arrival Date: 12/21/2023 Time: 16:31 Bed 3 Private MD: ED Physician Akin Pollock HPI: 12/20 17:08 This 38 yrs old Black Male presents to ER via Unassigned with complaints of seizure, ec2 ams. 17:09 Patient arrives today from long term with seizures and altered mental status and intubated ec2 en route via EMS. Patient with history of seizures, intubated with EMS with ketamine and rocuronium. Had reportedly struck his head and has a large laceration to the forehead.. Historical: - Allergies: 17: No Known Allergies; tm6 - PMHx: 17: Hypertensive disorder; depressive disorder; tm6 - PSHx: 17: None; tm6 - Immunization history: Last tetanus immunization: unknown. - Infectious Disease History:: Denies. - Social history:: Smoking status: unknown. ROS: 17:09 Constitutional: as per hpi ec2 Exam: 17:09 Constitutional: HEENT: -Head: Laceration as below -Eyes: EOMI CV: Tachycardia LUNGS: ec2 Breathing synchronously with the vent. Bilateral breath sounds present. ABD: non-tender SKIN: Large approximately 6 cm laceration to the forehead with obvious skull protruding without obvious deformity. MSK: No C/T/L spine deformities RUE w/o bony deformity LUE w/o bony deformity RLE w/o bony deformity LLE w/o bony deformity NEURO: moves all extremities equally, GCS 3T (E1, V1, M1) Vital Signs: 17:25 BP 103 / 63; Pulse 91; Resp 14; Pulse Ox 99% on ETT vent; MAP 76 mmHg; Weight 70 kg; bp 17:36 BP 159 / 108; Pulse 75; Resp 17; Pulse Ox 100% on R/A; MAP 124 mmHg; Weight 71.21 kg; tm6 18:16 BP 137 / 96; Pulse 88; Pulse Ox 100% on ETT vent; MAP 107 mmHg; tm6 19:03 BP 130 / 95; Pulse 83; Pulse Ox 100% on ETT vent; MAP 104 mmHg; tm6 19:10 BP 122 / 87; Pulse 92; Pulse Ox 100% on ETT vent; MAP 98 mmHg; tm6 19:30 BP 132 / 99; Pulse 88; Resp 15 A; Pulse Ox 100% on ETT vent; ha1 19:48 Temp 99(Ca); tm6 20:00 BP 139 / 92; Pulse 88; Resp 15 A; Pulse Ox 100% on ETT vent; ha1 20:20 BP 129 / 88; Pulse 87; Resp 16 A; Pulse Ox 100% on R/A; ha1 20:45 BP 128 / 84; Pulse 89; Resp 16 A; Pulse Ox 100% on ETT vent; ha1 21:00 BP 109 / 78; Pulse 88; Resp 16 A; Pulse Ox 100% on ETT vent; ha1 21:15 BP 113 / 74; Pulse 88; Resp 17 A; Pulse Ox 100% on ETT vent; ha1 21:30 BP 119 / 74; Pulse 88; Resp 15 A; Pulse Ox 100% on ETT vent; ha1 21:45 BP 112 / 75; Pulse 88; Resp 15 A; Pulse Ox 100% on ETT vent; ha1 22:00 BP 113 / 79; Pulse 88; Resp 15 A; Pulse Ox 100% on ETT vent; ha1 22:20 BP 135 / 86; Pulse 86; Resp 15 A; Pulse Ox 100% on ETT vent; ha1 22:37 BP 111 / 91; Pulse 93; Resp 16 A; Pulse Ox 100% ; ha1 23:00 BP 125 / 82; Pulse 86; Resp 16 A; Pulse Ox 100% on ETT vent; ha1 23:10 BP 143 / 91; Pulse 84; Resp 18 A; Pulse Ox 100% on ETT vent; ha1 Cary Coma Score: 16:36 Eye Response: none(1). Modifying Factors: Intubated. Motor Response: none(1). Verbal bp Response: none(1). Total: 3. Trauma Score (Adult): 16:36 Eye Response: none(0); Verbal Response: none(0); Motor Response: none(0); Systolic BP: bp > 89 mm Hg(4); Respiratory Rate: None(0); Cary Score: 3; Trauma Score: 4 Laceration: 19:20 Wound Repair of 6cm ( 2.4in ) subcutaneous laceration to face. Distal ec2 neuro/vascular/tendon intact. Wound prep: Moderate cleansing by me. Skin closed with 9 4-0 Silk using simple sutures and sterile technique. Patient tolerated well. MDM: 16:53 Medical Screening Exam initiated ec2 17:11 Data reviewed: vital signs. ED course: Patient arrives today with obvious forehead ec2 injury intubated after seizure episodes. Examination remarkable as above. Will obtain trauma gram, empirically give Keppra, Ancef for possible skull fracture, will keep the patient sedated with propofol. Differential diagnosis includes status epilepticus, intracranial brain bleed, skull fracture.. 17:12 ED course: Chest x-ray independently reviewed and interpreted by me, shows ec2 appropriately placed ET tube, no traumatic chest process identified.. 18:18 ED course: Patient with increased activity, gave additional Versed and started on ec2 Versed drip. Will transfer for status epilepticus, ICU evaluation, EEG. 18:52 ED course: EKG independently reviewed and interpreted by me, shows normal sinus rhythm, ec2 rate of 87, no acute ST segment elevations, intervals are nonactionable.. 18:59 ED course: I discussed case with ICU physician over at [facility] who agreed accept ec2 patient for transfer.. 12/20 16:52 Order name: Basic Metabolic Panel; Complete Time: 17:44 ec2 12/20 16:52 Order name: CBC with Diff; Complete Time: 17:44 ec2 12/20 16:52 Order name: High Sensitivity Troponin; Complete Time: 17:44 ec2 12/20 16:52 Order name: Protime (+inr); Complete Time: 17:44 ec2 12/20 16:52 Order name: Ptt, Activated; Complete Time: 17:44 ec2 12/20 16:52 Order name: Type And Screen; Complete Time: 18:07 ec2 12/20 16:53 Order name: Lactate w/ 2H reflex if indic.; Complete Time: 17:44 ec2 12/20 16:53 Order name: LFT's; Complete Time: 17:44 ec2 12/20 17:08 Order name: UAM; Complete Time: 19:59 ec2 12/20 18:57 Order name: UDS; Complete Time: 19:59 ec2 12/20 19:42 Order name: Ghost Lactate-NO COLLECT Timer; Complete Time: 19:59 EDMS 12/20 21:07 Order name: Lactate Sepsis 2 HR Follow-up EDMS 12/20 16:42 Order name: CXR XRAY; Complete Time: 17:44 bp 12/20 17:15 Order name: Chest Abdomen Pelvis W Cont; Complete Time: 18:16 EDMS 12/20 17:16 Order name: Head C Spine Mpr Wo Con; Complete Time: 18:07 EDMS 12/20 16:52 Order name: Accucheck; Complete Time: 17:24 ec2 12/20 16:52 Order name: Cardiac monitoring; Complete Time: 17:24 ec2 12/20 16:52 Order name: EKG - Nurse/Tech; Complete Time: 19:03 ec2 12/20 16:52 Order name: IV Saline Lock; Complete Time: 17:24 ec2 12/20 16:52 Order name: Labs collected and sent; Complete Time: 17:24 ec2 12/20 16:52 Order name: NPO; Complete Time: 17:24 ec2 12/20 16:52 Order name: O2 Per Protocol; Complete Time: 17:24 ec2 12/20 16:52 Order name: O2 Sat Monitoring; Complete Time: 17:24 ec2 12/20 17:38 Order name: Misc. Order: REMOVE FORENSIC RESTRAINT FOR HEALTHCARE; Complete Time: 17:38 bp 12/20 19:05 Order name: Restraint:Non-Violent; Complete Time: 19:05 bp Administered Medications: 16:50 Drug: Propofol IV 5 mcg/kg/min IV at calculated rate See Administration Instructions; tm6 Standard concentration 1000 mg / 100 mL; Recommended max rate 50 mcg/kg/min; Titrate 5 mcg/kg/min every 5 minutes to achieve goal (see titration policy); Goal parameter RASS score 0 to -2 Route: IV; Rate: calculated rate; Site: right antecubital; 19:38 Follow up: Response: No adverse reaction tm6 20:35 Follow up: Response: No adverse reaction; RASS: Moderate sedation (-3); Rate change 60 ha1 mcg/min 22:16 Follow up: Response: No adverse reaction; RASS: Moderate sedation (-3); IV Status: ha1 Infusion continued upon transfer 23:10 Follow up: Response: No adverse reaction; Rate change 50 mcg/min; IV Status: Infusion ha1 continued upon transfer 16:50 Drug: Rocuronium IVP 70 mg IVP once Route: IVP; Site: left antecubital; bp 17:39 Follow up: Response: No adverse reaction bp 17:00 Drug: NS 0.9% IV 1000 ml IV at 1000 ml once; to be given as a bolus over 60 minutes tm6 Route: IV; Rate: 1000 ml; Site: left antecubital; 18:00 Follow up: Response: No adverse reaction; IV Status: Completed infusion; IV Intake: tm6 1000ml 17:55 Drug: ceFAZolin IVPB 1 grams IVPB once Route: IVPB; Site: left antecubital; tm6 19:00 Follow up: Response: No adverse reaction; IV Status: Completed infusion ha1 17:55 Not Given (Product Out of Stock): diph,pertus(acel),tetanus vac (pf)0.5 ml IM once; tm6 indicated for adults and teenagers 11 to 64 years of age 17:55 Drug: Boostrix Tdap IM 0.5 ml IM once; as a single dose Route: IM; Site: right deltoid; tm6 19:39 Follow up: Response: No adverse reaction tm6 17:56 Drug: Keppra IV 2000 mg IV at bolus once Route: IV; Rate: bolus; Site: left antecubital;tm6 19:00 Follow up: Response: No adverse reaction; IV Status: Completed infusion ha1 18:15 Drug: Midazolam IVP or IV 0.01 mg/kg/h IV at calculated rate See Administration tm6 Instructions; (Standard concentration: 100 mg / 100 mL NS); Recommended max rate 0.1 mg/kg/hr; Titrate 0.01 mg/kg/hr as often as every 30 minutes to achieve goal (see titration policy); Goal parameter RASS 0 to -2 Route: IV; Rate: calculated rate; Site: left antecubital; 19:01 Follow up: Rate change 0.1 calculated rate tm6 19:38 Follow up: Response: No adverse reaction tm6 22:16 Follow up: Response: No adverse reaction; RASS: Moderate sedation (-3); IV Status: ha1 Infusion continued upon transfer 18:40 Drug: Ketamine IVP 100 mg IVP once Route: IVP; Site: left antecubital; tm6 19:38 Follow up: Response: No adverse reaction tm6 19:08 Drug: Midazolam IVP or IV 10 mg IVP once Route: IVP; Site: right antecubital; bp 19:39 Follow up: Response: No adverse reaction tm6 19:11 Drug: Propofol IVP 100 mg IVP once; Document RASS score. Route: IVP; Site: right lg3 antecubital; 19:39 Follow up: Response: No adverse reaction tm6 19:16 Drug: Succinylcholine IVP 150 mg IVP once Route: IVP; Site: right antecubital; lg3 19:39 Follow up: Response: No adverse reaction tm6 20:13 Drug: Propofol IVP 100 mg IVP once; Document RASS score. Route: IVP; Site: left tm6 antecubital; 20:30 Follow up: Response: No adverse reaction; RASS: Moderate sedation (-3) ha1 20:13 Drug: Midazolam IVP or IV 10 mg IVP once Route: IVP; Site: left antecubital; tm6 20:30 Follow up: Response: No adverse reaction; RASS: Moderate sedation (-3) ha1 21:05 Drug: Keppra IV 2000 mg IV at bolus once Route: IV; Rate: bolus; Site: right wrist; ha1 21:35 Follow up: Response: No adverse reaction; IV Status: Completed infusion; IV Intake: ha1 100ml Disposition Summary: 12/21/23 18:19 Transfer Ordered Notes: Transfer Location: Other Acute Care Facility ec2 Reason: Higher level of care ec2 Condition: Serious ec2 Problem: an acute exacerbation ec2 Symptoms: have improved ec2 Accepting Physician: transferring doc(12/21/23 23:25) ha1 Diagnosis - Epilepsy, unspecified, intractable, with status epilepticus ec2 Forms: - Medication Reconciliation Form ec2 - SBAR form ec2 Critical care time excluding procedures: 18:18 Critical care time: Bedside Care: 30 minutes, Consultation: 5 minutes. Total time: 35 ec2 minutes Signatures: Dispatcher [employer] Ernesto Gonzalez, RN RN Leydi Gomez RN RN lg3 Amanda Will RN RN ha1 Akin Pollock MD MD ec2 Caridad Stoll RN RN tm6 Corrections: (The following items were deleted from the chart) 16:53 16:53 BASIC METABOLIC PANEL+C.LAB.BRZ ordered. EDMS EDMS 16:53 16:53 CBC+H.LAB.BRZ ordered. EDMS EDMS 16:53 16:53 Troponin High Sensitivity+C.LAB.BRZ ordered. EDMS EDMS 16:53 16:53 PROTIME (+INR)+COAG.LAB.BRZ ordered. EDMS EDMS 16:53 16:53 PTT, ACTIVATED+COAG.LAB.BRZ ordered. EDMS EDMS 16:53 16:53 TYPE AND SCREEN+BB.LAB.BRZ ordered. EDMS EDMS 16:53 16:53 Head C Spine CAP W Con+CT.RAD.BRZ ordered. EDMS EDMS 16:53 16:53 LACTATE+C.LAB.BRZ ordered. EDMS EDMS 16:53 16:53 HEPATIC FUNCTION+C.LAB.BRZ ordered. EDMS EDMS 17:08 17:08 Urinalysis W/Microscopic+U.LAB.BRZ ordered. EDMS EDMS 17:24 16:52 Stroke Swallow Screen ordered. ec2 tm6 23:25 18:19 transferring doc ec2 ha1
[2023-12-21] MEDS ORDERED: NA CHLORIDE 0.9% 100 ML ONE ×2 (18:35→20:47)
[2023-12-21] MEDS ORDERED: KETAMINE HCL IN 0.9 % NACL 50 MG/5 ML SYRINGE IV ONE (18:35)
[2023-12-21] MEDS ORDERED: propofoL 1,000 MG/100 ML VIAL IV ONE ×2 (19:10→21:17)
[2023-12-21] MEDS ORDERED: SUCCINYLCHOLINE 20 MG/ML (10 ML) IV ONE (19:13)
[2023-12-21 19:56] LABS: Barbiturates NEGATIVE (NEGATIVE); Benzodiazepines POSITIVE (NEGATIVE); Cocaine NEGATIVE (NEGATIVE); METHAMPHETAM NEGATIVE (NEGATIVE); Methadone NEGATIVE (NEGATIVE); Opiates NEGATIVE (NEGATIVE); Phencyclidine NEGATIVE (NEGATIVE); THC Cannibis NEGATIVE (NEGATIVE)
[2023-12-21 19:58] LABS: Specific Gravity > 1.030 (1.005-1.030); Sqamous Epithelial None Seen /HPF (None Seen); Urine Bacteria <20 /HPF (<20); Urine Bilirubin NEGATIVE (Negative); Urine Blood 3+ (Negative); Urine Clarity Clear (Clear); Urine Color Light-Yellow (Yellow); Urine Culture Reflex Order NOT NEEDED; Urine Glucose NEGATIVE (Negative); Urine Ketones NEGATIVE (Negative); Urine Micro Reflex YN NO BILL MICROSCOPIC; Urine Mucus Slight /HPF (None Seen); Urine Nitrite NEGATIVE (Negative); Urine Protein NEGATIVE (Negative); Urine RBC >50 /HPF (None Seen); Urine Urobilinogen Normal (Normal); Urine WBC <5 /HPF (<5); Urine pH 6.5 (5.0-7.0)
[2023-12-22 00:40] VITALS: O2SAT 100
[2023-12-22 00:45] VITALS: TEMP 99
[2023-12-22 00:57] VITALS: BP 111/91
== END 2023-12-21 23:25 ==
LOC: ER 16:31
DX: G40.911 Epilepsy, unspecified, intractable, with status epilepticus (principal); I10 Essential (primary) hypertension; S01.81XA Laceration without foreign body of other part of head, initial encounter
CPT/HCPCS: 85025; 81001; 80048; 36415; 86900; 86850; 85610; 86901; 80076; 83605 ×2; 85730; 84484; 80307; 70450; 72125; 71260; 74177; 71045; 51702; 96372; 99291; 99292; 12014; 94002; Q9967; J1953 ×3; J2250 ×2; J0690; J2704; J7030